=== PATIENT | male | born 1945 | race Caucasian/White ===

== ENCOUNTER 2019-07-15 16:32 | Emergency (ER) | payer OTHER ==
--- OUTSIDE RECORDS SUMMARY | 2019-07-15 16:49 | XMS REPORT | Continuity of Care Document ---
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 compliance was discussed and patient understands the need for the treatment. patient will continue on cpap and will call us if having problems. This patient's plan of care was approved by Dr. Seth Olguin. as of 30-May-2019 PANCREATITIS (K85.90) (577.0) Dut, [facility] Amadou Alejandro SCIATICA (M54.30) (724.3) Dut, [facility] Amadou Alejandro TINNITUS (H93.19) (388.30) Dut, NPC Amadou D Allergies and Adverse Reactions No Known Drug Allergies (Allergy) Onset: 06-Jun-2018 Medications Aspirin 81 MG Oral Tablet; 1 daily (81 MG) Atorvastatin Calcium 40 MG Oral Tablet; 1 daily (40 MG) Cholecalciferol 1000 UNIT Oral Tablet; 1 daily (1000 UNIT) Combivent Respimat 20-100 MCG/ACT Inhalation Aerosol Solution; 1 Four times daily (20-100 MCG/ACT) Cyanocobalamin 1000 MCG Oral Tablet; 1 daily (1000 MCG) Ferrous Gluconate 324 (37.5 Fe) MG Oral Tablet; 1 daily (324 (37.5 Fe) MG) Fluticasone Propionate 50 MCG/ACT Nasal Suspension; 2 sprays ea nostril (50 MCG/ACT) Meclizine HCl 25 MG Oral Tablet; 1 daily (25 MG) Melatonin 3 MG Oral Tablet; 2 hs (3 MG) Nasal Saline 0.65 % Nasal Solution; 1 spray ea nostril daily (0.65 %) Polyethylene Glycol 3350 Oral Powder; as Comments: Medication taken as needed. needed Warfarin Sodium 3 MG Oral Tablet; 1 daily (3 MG) Calcium 500 MG Oral Tablet; 1 daily (500 Status: Inactive MG) Enoxaparin Sodium 100 MG/ML Subcutaneous Status: Inactive Solution; UAD (100 MG/ML) Folic Acid 1 MG Oral Tablet; 1 daily (1 MG) Status: Inactive Multiple Vitamin Oral Tablet; 1 daily Status: Inactive Procedures RESPIRATORY FLOW VOLUME LOOP (27632) Status: Completed 07-Jun-2018 Flu Vaccine Status: Completed 14-Jun-2017 Hernia Repair Status: Completed Prevnar 13 Status: Completed 25-Apr-2015 PRE AND POST (31621)Result: Hemoptysis: No Status: Completed 30-May-2019 [place] Sleepiness ScaleResult: [Situation] Sitting and Status: Completed May-2018 Readin = High chance of dozing; Watching Television: 3 = High chance of dozing; Sitting inactive in a public place (theatre, meeting): 2 = Moderate chance of dozing; As a passenger in a car for an hour without a break: 3 = High chance of dozing; Lying down to rest in the afternoon: 2 = Moderate chance of dozing; Sitting and talking to someone: 1 = Slight chance of dozing; Sitting quietly after lunch without alcohol: 2 = Moderate chance of dozing; In a car, while stopping for a few minutes in traffic: 0 = Would never doze [Total] Score: 16 SIMPLE PFT: BASELINE PULMONARY FUNCTION TEST (PFT) Status: Completed 2017 (69007)Result: Hemoptysis: No Family History Father Status: Active Comments: Heart disease Mother Status: Active Comments: . Heart disease Social History Alcohol use Caffeine use Current work status: Retired. Comments: [employer] Marital status No drug use Tobacco use: Former smoker. Comments: Age [age] 2ppd. Previously smoked 5ppd Former smoker Male Plan of Treatment HOME SLEEP TEST/TYPE 3 HILARIO (G0399) Start: 07-Jun-2018 [facility] Medical; FOLLOW UP 15 - 6MO FU Start: 05-Dec-2019 15:45 Appointment Request [facility] Dut, ALISON Alejandro TANNER (OBSTRUCTIVE SLEEP APNEA) : FU EITHER Indication:TANNER (OBSTRUCTIVE SLEEP APNEA) TANNER (OBSTRUCTIVE SLEEP APNEA) : FU EITHER Indication:TANNER (OBSTRUCTIVE SLEEP APNEA) TANNER (OBSTRUCTIVE SLEEP APNEA) : FU EITHER Indication:TANNER (OBSTRUCTIVE SLEEP APNEA) Results No Known Results No Result Information Available Vital Signs 30-May-2019 15:42 Temperature 98.2 f Comments: Method: Tympanic Pulse 67 /min Comments: Pattern: Regular Respiration Rate 14 /min Comments: Pattern: Unlabored O2 SAT 98 % Comments: Room air BP Systolic 112 mm[Hg] Comments: Patient Position: Sitting; Cuff Location: Left Arm; Cuff Size: Standard BP Diastolic 68 mm[Hg] Comments: Patient Position: Sitting; Cuff Location: Left Arm; Cuff Size: Standard Weight 133 lb Height 67 in BMI 20.83 kg/m2 BSA 1.7 m2 28-Nov-2018 15:58 Temperature 97.1 f Comments: Method: Tympanic Pulse 60 /min Comments: Pattern: Regular Respiration Rate 20 /min Comments: Pattern: Unlabored O2 SAT 97 % Comments: Room air BP Systolic 108 mm[Hg] Comments: Patient Position: Sitting; Cuff Location: Left Arm; Cuff Size: Standard BP Diastolic 84 mm[Hg] Comments: Patient Position: Sitting; Cuff Location: Left Arm; Cuff Size: Standard Weight 143 lb Height 67 in BMI 22.4 kg/m2 BSA 1.75 m2 26-Aug-2018 15:26 Temperature 98.7 f Comments: Method: Tympanic Pulse 78 /min Comments: Pattern: Regular Respiration Rate 16 /min Comments: Pattern: Unlabored O2 SAT 97 % Comments: Room air BP Systolic 106 mm[Hg] Comments: Patient Position: Sitting; Cuff Location: Left Arm; Cuff Size: Standard BP Diastolic 66 mm[Hg] Comments: Patient Position: Sitting; Cuff Location: Left Arm; Cuff Size: Standard Weight 143 lb Height 67 in BMI 22.4 kg/m2 BSA 1.75 m2 07-Jun-2018 14:47 Temperature 97.2 f Comments: Method: Tympanic Pulse 76 /min Comments: Pattern: Regular Respiration Rate 14 /min Comments: Pattern: Unlabored O2 SAT 95 % Comments: Room air BP Systolic 122 mm[Hg] Comments: Patient Position: Sitting; Cuff Location: Left Arm; Cuff Size: Standard BP Diastolic 74 mm[Hg] Comments: Patient Position: Sitting; Cuff Location: Left Arm; Cuff Size: Standard Weight 140 lb Height 67 in BMI 21.93 kg/m2 BSA 1.74 m2 Advance Directives HIPAA - Effective on 08/26/2018. Expiration date unspecified Effective: Encounters Office Visit 30-May-2019 16:00 To 30-May-2019 16:31 Encounter Reason: Sleep Disorders - The sleep disorder is characterized as obstructive sleep apnea and snoring. The [facility] t office visit was 6 month(s) ago. Symptoms include excessive daytime sleepiness, snoring, sleepiness when sedentary and unrefreshing sleep. Onset was gradual year(s) ago. The patient describes this as mild and improving. Current treatment includes CPAP therapy. By report there is fair compliance with treatment, fair tolerance of treatment and fair symptom control. Encounter Diagnosis: TANNER (OBSTRUCTIVE SLEEP APNEA) Office Visit 28-Nov-2018 16:00 To 29-Nov-2018 12:47 Encounter Reason: Sleep Disorders - The sleep disorder is characterized as obstructive sleep apnea and snoring. The [facility] t office visit was 3 month(s) ago. Symptoms include excessive daytime sleepiness, snoring, sleepiness when sedentary and unrefreshing sleep. Onset was gradual year(s) ago. The patient describes this as mild and improving. Current treatment includes CPAP therapy. By report there is fair compliance with treatment, fair tolerance of treatment and fair symptom control. Previous presentation included snor ing, excessive daytime sleepiness and witnessed apnea during sleep. Encounter Diagnosis: TANNER (OBSTRUCTIVE SLEEP APNEA) Office Visit 26-Aug-2018 15:16 To 29-Aug-2018 11:02 Encounter Reason: Sleep Disorders - The sleep disorder is characterized as obstructive sleep apnea and snoring. Symptom [facility] s include excessive daytime sleepiness, snoring, sleepiness when sedentary and unrefreshing sleep. Onset was gradual year(s) ago. The patient describes this as mild and unchanged. Current treatment incl udes none (ordering auto PAP). Previous presentation included snoring, excessive daytime sleepiness and witnessed apnea during sleep. Encounter Diagnosis: TANNER (OBSTRUCTIVE SLEEP APNEA) Office Visit 07-Jun-2018 14:35 To 08-Jun-2018 10:14 Encounter Reason: Sleep Evaluation - The onset of the sleep problem has been gradual and [facility]. Daytime symptoms include daytime sleepiness, decreased energy, fatigue and dozing off during the day. The sleep problems have had an impact on the patient's concentration and mem ory. The patient reports snoring and snoring that disturbs others . The patient reports daytime sleepiness, being a light sleeper, being a restless sleeper and jerking or twitching legs. Ancillary symp toms include insomnia, fragmented night sleep and frequent need to nap. The patient wakes up for to use bathroom, unknown reason, nightmares and awakenend by bed partner. During the first few minutes af ter awakening the patient feels very groggy after waking up. The patient has a regular bed partner. The patient sleeps in variable positions. Encounter Diagnosis: TANNER (OBSTRUCTIVE SLEEP APNEA) Historical Summary 06-Jun-2018 13:39 To 06-Jun-2018 14:05 [facility] Payers Medicare [place] [address] [facility] [address] [place] Group Number: NONE tel: [employer] [facility] [address] [facility] [address] [place] Group Number: [id number] tel: Marlon Li [id number] [facility] [address] tel:
--- OUTSIDE RECORDS SUMMARY | 2019-07-15 16:49 | XMS REPORT | Continuity of Care Document ---
:1945 Author Name Offset Press Assistant, System Address Unavailable Unavailable , Care Team [...] as of 30-May-2019 PANCREATITIS (K85.90) (577.0) Dut, [facility] Amadou Alejandro SCIATICA (M54.30) (724.3) Dut, [facility] Amadou Alejandro TINNITUS (H93.19) (388.30) Dut, NPC [...] Status: Inactive Procedures RESPIRATORY FLOW VOLUME LOOP (62476) Status: Completed 07-Jun-2018 Flu Vaccine Status: Completed 14-Jun-2017 Hernia Repair Status: Completed Prevnar 13 Status: Completed 25-Apr-2015 PRE AND POST (30677)Result: Hemoptysis: No Status: Completed 30-May-2019 [place] Sleepiness ScaleResult: [Situation] Sitting and Status: Completed [...] PULMONARY FUNCTION TEST (PFT) Status: Completed 2017 (76228)Result: Hemoptysis: No Family History Father Status: Active Comments: Heart disease Mother Status: Active Comments: . Heart disease Social History Alcohol use Caffeine use Current work status: Retired. Comments: [employer] Marital status No drug use Tobacco use: Former smoker. Comments: Age [age] 2ppd. Previously smoked 5ppd Former smoker Male Plan of Treatment HOME SLEEP TEST/TYPE 3 HILARIO (G0399) Start: 07-Jun-2018 [facility] Medical; FOLLOW UP 15 - 6MO FU Start: 05-Dec-2019 15:[address] [facility] Dut, ALISON Alejandro TANNER (OBSTRUCTIVE SLEEP [...] as obstructive sleep apnea and snoring. The [facility] t office visit was 6 month(s) [...] as obstructive sleep apnea and snoring. The [facility] t office visit was 3 month(s) [...] as obstructive sleep apnea and snoring. Symptom [facility] s include excessive daytime sleepiness, snoring, [...] gradual and [facility]. Daytime symptoms [...] Historical Summary 06-Jun-2018 13:39 To 06-Jun-2018 14:[address] [facility] Office Payers Medicare [place] [address] [facility] [address] [place] Group Number: NONE tel: [employer] [facility] [address] [facility] [address] [place] Group Number: [id number] tel: Marlon Li [id number] [facility] [address] tel:
[2019-07-15 17:07] VITALS: BP 98/62
--- NOTE | 2019-07-15 17:22 | UC ---
Shortness of Breath HPI - HPI Summary HPI Summary: c/O worsening SOB with weakness over the last 1-2 weeks. No fevers/ chills. h/O pneumonia. H/O COPD - History of Current Complaint Chief Complaint: UCRespiratory Stated Complaint: CONGESTION,COUGH Time Seen by Provider: 07/15/19 17:02 Hx Obtained From: Patient Onset/Duration: Gradual Onset, Lasting Weeks - 1-2, Worse Since - onset Timing: Constant Current Severity: Moderate Dyspnea At: Exertion Aggravating Factors: Movement Associated Signs & Symptoms: Positive: Cough (Productive), Dizzy. Negative: Chills, Diaphoresis - Allergy/Home Medications Allergies/Adverse Reactions: Allergies Allergy/AdvReac Type Severity Reaction Status Date / Time No Known Allergies Allergy Verified 07/15/19 17:07 Home Medications: Home Medications Aspirin EC TAB* [Ecotrin EC Low Dose 81 MG*] 81 mg PO DAILY 07/15/19 [History Confirmed 07/15/19] Cyanocobalamin TAB* [Vitamin B12 TAB*] 0 mcg PO SEE INSTRUCTIONS 07/15/19 [ History Confirmed 07/15/19] Inhaler Med 1 dose INH SEE INSTRUCTIONS PRN 07/15/19 [History Confirmed 07/15/19 ] Melatonin 1 tab PO QPM PRN 07/15/19 [History Confirmed 07/15/19] Warfarin TAB(*) [Coumadin TAB(*)] 1 dose PO QPM 07/15/19 [History Confirmed ] iron 1 tab PO SEE INSTRUCTIONS 07/15/19 [History Confirmed 07/15/19] PMH/Surg Hx/FS Hx/Imm Hx Respiratory History: COPD - Surgical History Surgical History: Yes Surgery Procedure, Year, and Place: right inguinal 1998 - Family History Known Family History: Positive: Cardiac Disease, Hypertension, Diabetes - Social History Occupation: Employed Full-time Lives: With Family Alcohol Use: None Substance Use Type: None Smoking Status (MU): Former Smoker When Did the Patient Quit Smoking/Using Tobacco: 2004 Review of Systems All Other Systems Reviewed And Are Negative: Yes Constitutional: Positive: Fatigue Respiratory: Positive: Shortness Of Breath, Cough Physical Exam Triage Information Reviewed: Yes Appearance: No Pain Distress, Ill-Appearing, Thin Vital Signs: Initial Vital Signs Temp 99.4 F 07/15/19 16:50 Pulse 66 07/15/19 16:50 Resp 28 07/15/19 16:50 BP 98/62 07/15/19 16:50 Pulse Ox 98 07/15/19 16:50 Vital Signs Reviewed: Yes Eyes: Positive: Conjunctiva Clear ENT: Positive: Pharynx normal, TMs normal Neck exam: Normal Respiratory: Positive: Decreased breath sounds, Wheezing - scant end expiratory wheezes. Negative: Crackles Cardiovascular Exam: Normal Musculoskeletal Exam: Normal Neurological Exam: Normal Psychological Exam: Normal Skin Exam: Normal Shortness of Breath Dx - Differential Dx/Diagnosis Differential Diagnosis/HQI/PQRI: Asthma, Bronchitis, CHF, COPD Exacerbation Provider Diagnosis: COPD with acute exacerbation Discharge ED - Sign-Out/Discharge Documenting (check all that apply): Patient Departure All imaging exams completed and their final reports reviewed: No Studies - Discharge Plan Condition: Stable Disposition: HOME Prescriptions: DOXYcycline CAP(*) [DOXYcycline 100MG CAP(*)] 100 mg PO BID #14 cap predniSONE TAB* [Deltasone 20 MG TAB*] 60 mg PO DAILY #18 tab Patient Education Materials: COPD (Chronic Obstructive Pulmonary Disease) (ED) , Prednisone (By mouth), Doxycycline (By mouth) Referrals: Xavi Allen MD [Primary Care Provider] - - Billing Disposition and Condition Condition: STABLE Disposition: Home
== END 2019-07-15 17:38 | disposition home or self-care (01) ==
LOC: UCCORT 16:32
DX: J44.1 Chronic obstructive pulmonary disease with (acute) exacerbation (principal); R53.1 Weakness; R42 Dizziness and giddiness; R53.83 Other fatigue; Z87.891 Personal history of nicotine dependence
CPT/HCPCS: 99211; G0463